=== PATIENT | female | born 1955 | race Caucasian/White ===

== ENCOUNTER → 2016-09-15 | Outpatient (CLI) | payer BC ==
[~2016-09-15] MED LIST: BUSP10TA11 PO
--- NOTE | 2016-09-16 13:15 | MAMMOGRAPHY REPORT ---
THIS REPORT HAS BEEN AMENDED. BILATERAL DIGITAL SCREENING MAMMOGRAM TOMOSYNTHESIS WITH CAD: 09/15/2016 CLINICAL HISTORY: Routine screening. Patient has no complaints. TECHNIQUE: Breast tomosynthesis in addition to standard 2D mammography was performed. Current study was also evaluated with a Computer Aided Detection (CAD) system. COMPARISON: No prior exams were available for comparison. BREAST COMPOSITION: There are scattered areas of fibroglandular density in both breasts. FINDINGS: There is a a 4 mm lobulated, partially circumscribed mass in the 6:00 middle to posterior right breast, for which additional targeted ultrasound and possible additional mammographic views a re recommended. Another possible 4 mm oval mass in the medial posterior left breast, only seen on t he CC views, for which additional spot compression tomosynthesis views and possibly left breast ultr asound are recommended. No other suspicious mass, architectural distortion or cluster of suspicious microcalcifications is s een bilaterally. IMPRESSION: ACR BI-RADS CATEGORY 0: INCOMPLETE EVALUATION: NEED ADDITIONAL IMAGING EVALUATION The 4 mm mass in the 6:00 right breast and possible additional 4 mm mass in the medial left breast n eed additional imaging evaluation. The patient will be called to schedule an appointment. Approximately 10% of breast cancers are not detected with mammography. A negative mammographic repor t should not delay biopsy if a clinically suggestive mass is present. Anayeli Huertas M.D. ay/:09/15/2016 16:47:51 Massage Operator: Genia HUANG(Lora)(Shauna), [facility] letter sent: [facility] 0 BI-RADS Code: ACR BI-RADS Category 0: Incomplete Evaluation: Need Additional Imaging Evaluation AMENDMENT: 09/24/2016 Anayeli Huertas M.D. A prior outside mammogram from [facility] dated 05/11/2007 became available for review. Th e 4 mm lobulated, partially circumscribed mass in the right 6:00 breast, and other possible 4 mm ova l mass in the medial posterior left breast are increased in conspicuity compared to the prior outsid e screen film mammograms. Therefore, additional imaging evaluation is needed. No other significant interval change is identified. Amended BI-RADS: ACR BI-RADS Category 0: Incomplete Evaluation: Need Additional Imaging Evaluation letter sent: [facility] 0
== END | disposition home or self-care (01) ==
LOC: C.MAMM 08:58
PROVIDERS: ATTEND Internal Medicine
DX: Z12.31 Encounter for screening mammogram for malignant neoplasm of breast (principal); N63 Unspecified lump in breast

== ENCOUNTER → 2017-01-20 | Outpatient (CLI) | payer BC ==
[2017-01-20 12:45] LABS: ALT/SGPT 102 U/L (12-78); BLOOD UREA NITROGEN 8 mg/dl (7-18); BUN/CREATININE RATIO 12.4 (10-20); CALCIUM 9.8 mg/dl (8.5-10.1); CARBON DIOXIDE 25 mmol/L (21-32); CHLORIDE 104 mmol/L (98-107); CHOLESTEROL 270 mg/dl (0-200); CREATININE 0.66 mg/dl (0.60-1.20); GLUCOSE 83 mg/dl (70-99); POTASSIUM 4.2 mmol/L (3.5-5.1); SODIUM 139 mmol/L (136-145); TRIGLYCERIDES 61 mg/dl (0-150); VERY LOW DENSITY LIPOPROT CALC 12 mg/dl
[2017-01-20 12:55] LABS: ALB/GLOB RATIO 1.2 (0.9-2); ALKALINE PHOSPHATASE 83 U/L (45-117); AST/SGOT 138 U/L (15-37); CHOLESTEROL/HDL RATIO 2.9; HDL CHOLESTEROL 92 mg/dl; LDL CHOLESTEROL CALCULATED 166 mg/dl; THYROID STIMULATING HORMONE 0.798 uIu/ml (0.300-4.500)
== END | disposition home or self-care (01) ==
LOC: C.LABPBG 09:11
PROVIDERS: ATTEND Physician Assistant Medical
DX: Z00.00 Encounter for general adult medical examination without abnormal findings (principal)

== ENCOUNTER → 2017-02-11 | Outpatient (CLI) | payer BC ==
[2017-02-11 12:15] LABS: ALT/SGPT 79 U/L (12-78); AST/SGOT 92 U/L (15-37); BLOOD UREA NITROGEN 13 mg/dl (7-18); BUN/CREATININE RATIO 15.5 (10-20); CALCIUM 9.9 mg/dl (8.5-10.1); CARBON DIOXIDE 28 mmol/L (21-32); CHLORIDE 106 mmol/L (98-107); CREATININE 0.83 mg/dl (0.60-1.20); GLUCOSE 90 mg/dl (70-99); POTASSIUM 4.2 mmol/L (3.5-5.1); SODIUM 139 mmol/L (136-145)
[2017-02-11 12:19] LABS: ALB/GLOB RATIO 1.2 (0.9-2); ALKALINE PHOSPHATASE 66 U/L (45-117); FERRITIN 150.9 ng/ml (8.0-388.0)
== END | disposition home or self-care (01) ==
LOC: C.LABPBG 08:32
PROVIDERS: ATTEND Internal Medicine
DX: R74.0 Nonspecific elevation of levels of transaminase and lactic acid dehydrogenase [LDH] (principal)

== ENCOUNTER → 2017-03-18 | Outpatient (CLI) | payer BC ==
--- NOTE | 2017-03-18 08:24 | DIAGNOSTIC IMAGING REPORT ---
ABDOMINAL ULTRASOUND, RIGHT UPPER QUADRANT HISTORY: Elevated transaminase level. COMPARISON: None. FINDINGS: Liver morphology is normal. Note is made of a 6 x 5.4 x 3.6 cm right hepatic lobe cyst. This may have minimal peripheral calcification. This lesion is benign. There is no biliary ductal dilatation. The common bile measures 6 mm in caliber. Hepatic echogenicity is mildly increased. Pancreatic body is normal. The head and tail are partially obscured. There is no right hydronephrosis. The gallbladder is normal. There are no gallstones. IMPRESSION: 1. No gallstones or biliary ductal dilatation. 2. Probable fatty infiltration of the liver. 3. 6 cm right hepatic lobe cyst. Electronically signed by: Jerson Morelos M.D. 03/18/2017 8:22 AM Dictated Date/Time: 03/18/2017 8:20 AM
== END | disposition home or self-care (01) ==
LOC: C.ULTRBC 07:45
PROVIDERS: ATTEND Physician Assistant Medical
DX: R74.0 Nonspecific elevation of levels of transaminase and lactic acid dehydrogenase [LDH] (principal); K76.89 Other specified diseases of liver

== ENCOUNTER → 2017-07-18 | Outpatient (CLI) | payer BC ==
[2017-07-18 14:09] LABS: ALBUMIN 3.9 gm/dl (3.4-5.0); ALT/SGPT 24 U/L (12-78); AST/SGOT 18 U/L (15-37); BLOOD UREA NITROGEN 11 mg/dl (7-18); CALCIUM 9.4 mg/dl (8.5-10.1); CARBON DIOXIDE 27 mmol/L (21-32); GLUCOSE 99 mg/dl (70-99); POTASSIUM 4.1 mmol/L (3.5-5.1); SODIUM 135 mmol/L (136-145)
[2017-07-18 14:10] LABS: ALKALINE PHOSPHATASE 80 U/L (45-117); CHOLESTEROL 229 mg/dl (0-200); LDL CHOLESTEROL CALCULATED 132 mg/dl; TOTAL PROTEIN 7.2 gm/dl (6.4-8.2)
== END | disposition home or self-care (01) ==
LOC: C.LABBC 11:24
PROVIDERS: ATTEND Physician Assistant Medical
DX: R74.0 Nonspecific elevation of levels of transaminase and lactic acid dehydrogenase [LDH] (principal); E78.5 Hyperlipidemia, unspecified